=== PATIENT | female | born 1995 | race Caucasian/White ===

== ENCOUNTER 2024-04-06 09:04 | Outpatient (CLI) | payer OTHER, SELFPAY | END 2024-04-06 09:05 | disposition home or self-care (01) | LOC: US 09:05 | PROVIDERS: Visit Provider Registered Nurse | DX: Z34.93 Encounter for supervision of normal pregnancy, unspecified, third trimester (principal); O36.63X0 Maternal care for excessive fetal growth, third trimester, not applicable or unspecified; Z3A.35 35 weeks gestation of pregnancy | CPT/HCPCS: 76815 ==

== ENCOUNTER 2024-04-20 09:45 | Outpatient (CLI) | payer OTHER, SELFPAY | END 2024-04-20 09:46 | disposition home or self-care (01) | LOC: NFLDREF 04-22 04:12 | PROVIDERS: Visit Provider Obstetrics & Gynecology | DX: Z34.03 Encounter for supervision of normal first pregnancy, third trimester (principal) | CPT/HCPCS: 87081; 87653 ==

== ENCOUNTER 2024-05-02 08:14 | Outpatient (CLI) | payer OTHER, SELFPAY ==
[2024-05-02] VITALS (8 sets, daily range): BP systolic 128; BP diastolic 82; PULSE 83–93; RESP 16; TEMP 36.9; O2SAT 97–98
[2024-05-02] MEDS: TERBUTALINE 1 MG/ML INJ 0.25 MG SUBCUT (09:54)
--- NOTE | 2024-05-02 11:46 | W.PM.GYNPROC ---
Procedure Note Time Seen by Provider: 09:30 Date of procedure: 05/02/[address] [facility] bill your pro fee for this procedure?: Yes Procedure Description: I discussed with patient that 3-4% of pregnancies are breech at term.? If there is a concern in for malpresentation, we assessed with ultrasound at 36 weeks.? If the fetus continues to be breech at 36 weeks, she has the option of attempting an external cephalic version at 37 weeks.? We discussed the rationale for doing the procedure at 37 weeks (technically feasible, fetus is term should delivery be indicated, and lower risk of reversion). Contraindication to external cephalic version is anything that is a contraindication to vaginal delivery such as a placenta previa, multiple previous CD etc. Patient doesn?t have any contraindications. The benefit of an external cephalic version is fewer delivery.? There is a lower odd of endometritis, sepsis, hospital stay greater than 7 days.? It is important to know that there is no difference for low APGARs, low umbilical vein pH, and when comparing external cephalic version with subsequent vaginal delivery to planned delivery at term. The risks of external cephalic version: heart rate changes (most common in stabilizes when procedure is discontinued). ?Overall, serious adverse effects are very low, all < 1%.? These include placental abruption, umbilical cord prolapse, rupture of membranes, stillbirth, maternal hemorrhage.? The risk of an emergency delivery is also low. We discussed factors affecting success.? The overall success rate quoted in the literature is 58%.? Factors that her favorable towards a successful external cephalic version are increased parity, transverse or oblique presentation, normal amniotic volume, normal maternal BMI, and posterior placental location. Factors more associated with failure is nulliparity, advanced dilation, weight less than 2500g, anterior placenta, and low station. She will be given terbutaline for tocolysis prior to the procedure.? We discussed that terbutaline has doubled the rate of ECV success.? With regards to anesthesia, neuraxial anesthesia is available to her should she desire. I will be performing an ultrasound prior to the ECV to confirm positioning.?Additionally, if we are to proceed with the external cephalic version we will get a reactive NST prior to proceeding.? During the procedure intermittent ultrasonography will be used to assess for status.? If there is any concern for or maternal well being the procedure will be terminated immediately. After the procedure, regardless of success or not, she and fetus will be monitored for at least 60 minute prior to discharge. Patient does not require RhoGAM as she is Rh positive. PREOPERATIVE DIAGNOSIS: 1. Intrauterine at 37 weeks gestation. 2. Gifty breech presentation. POSTOPERATIVE DIAGNOSIS: 1. Intrauterine at 37 weeks gestation. 2. Vertex presentation. PROCEDURE(S): 1. Nonstress test. 2. Limited OB ultrasound. 3. External cephalic version. SURGEON: MD Myles TREAD BOOKER: Samantha Weinberg CNM ANESTHESIA: None. COMPLICATIONS: None. FINDINGS: Nonstress test: heart rate baseline 150s beats per minute, moderate variability, 15 x 15 accelerations present, no decelerations, category 1. Limited OB ultrasound: Single, living, intrauterine gestation in a gifty breech presentation with the back along the maternal right, grossly normal amniotic fluid volume. PROCEDURE NOTE: A nonstress test was performed, which was reactive and reassuring. A limited OB ultrasound was performed at the bedside to determine position. Findings noted above. Informed consent was obtained for external cephalic version. Terbutaline 0.25 mg was administered to the patient subcutaneously. External cephalic version was attempted. Samantha Weinberg CNM applied upward pressure to the breech and Augie applied pressure to the vertex, and we attempted to gently coax the fetus in a forward roll in a counter-clockwise direction. This was attempted 2 times. This 2nd attempt was successful. heart tones were noted to be normal after all attempts. The patient tolerated the procedure well. monitoring for 1 hour after the procedure was continued to be reassuring. Anesthesia: None Condition: stable Disposition: same day discharge
--- NOTE | 2024-05-02 12:25 | PC.OBNST ---
NST Note NST Note Start: 05/02/24 08:25 Freq: ONCE Status: Active Protocol: Document 05/02/24 12:05 FJRory (Rec: 05/02/24 12:24 [email or web address] [id number]) NST Note 1 Para (# of births) 0 EDC 05/21/24 Gestational Age In Weeks & Days 37 Weeks & 2 Days Patient Presented with Complaint(s) of Other Other Complaints Scheduled External Cephalic Version Reactive Yes RN Bhavani Ponce RN Date 05/02/24 Reactive Yes NERY Lerma RN Date 05/02/24 OB NST charge Yes Complete NST Note via Write Note Yes The provider's electronic signature indicates the NST is reactive/appropriate for gestational age. *Note to provider: If an addendum is required, open the patient's chart and click on the note under the Nurse/Allied Health tab.
== END 2024-05-02 12:05 | disposition home or self-care (01) ==
LOC: OB CLI 08:16 → OB 08:19
PROVIDERS: Visit Provider Advanced Practice Midwife
DX: O32.1XX0 Maternal care for breech presentation, not applicable or unspecified (principal); Z3A.37 37 weeks gestation of pregnancy
CPT/HCPCS: 59025; 59412; 76815; G0463; J3105

== ENCOUNTER 2024-05-18 14:27 | Inpatient (IN) | payer OTHER, SELFPAY ==
[2024-05-18] VITALS (26 sets, daily range): BP systolic 120–168; BP diastolic 60–92; PULSE 85–146; RESP 16; TEMP 36.7–37.5; O2SAT 92–100; BMI 39.7
--- NOTE | 2024-05-18 16:30 | P.LDBA_ITS ---
Subjective History of Present Illness Date Seen: 05/18/24 Narrative: Patient is being admitted to Labor and Delivery for spontaneous onset of labor. She is a 28 year old at 39 4/7 weeks gestation. Her full history and physical was dictated by Dr. Bueno on 04/25/2024. Please see this for details. Paradise states that contractions began around 4:00 yesterday afternoon. They kept her up much of the night. This morning, the contractions became stronger and more regular. She describes normal movement. She is accompanied today by her and her Mental Health Program Director. Specific Issues/Plans G 1 P 0 : Jayy H&P: Dr. Bueno on 04/25/2024 *Repeat GBS at 40 week visit - last done 04/20 (would before 41 week IOL)* #Breech * ECV 05/02/2024 successful! #Anxiety. Well managed with Lexapro 10 mg #Nonimmune to rubella. MMR #History of possible hypertension. Never on medication. See above. #Size greater than dates. Growth ultrasound: 04/05/24 EFW >97%, AC >97% * Consider induction of labor at 39 weeks gestation #Low lying placenta. 1.4cm from os at 20 weeks. Ultrasound ordered for next week to recheck placental location: No longer low lying. Flu: 03/31/2024 Covid: Declines today. Considering for next visit.[] TDAP: 03/04/24 RSV:04/06/24 Labs: 10/20/2023: Blood type O positive, antibody screen negative, hemoglobin 13.7, platelets 262, rubella non immune, hepatitis-B antigen nonreactive, HIV nonreactive, chlamydia and gonorrhea both negative, urine culture with less than 10,000 multiple organisms, hepatitis-C nonreactive, varicella positive, 12/17/2022: Pap smear normal, negative HPV. 03/04/2024: Hemoglobin 11.9, 1 hour glucose 94, TP PA nonreactive Ultrasounds: 09-26-23: Viable IUP measuring 3mm 10-07-23: Single viable IUP. US EDC is 05/21/24 with gestational age 7w4d. No adnexal masses. Right ovarian hyperechoic circumscribed region noted. Follow up on survey. MAE seen. 12-29-23: Single living IUP in variable presentation. No gross abnormalities. Low lying placenta present (1.4cm from os), anterior. Recommend US at 32 weeks* Anatomy not seen: 3 vellel trachea view and profile. Rec. f/u US in 7-10days. Rt and Lt ovary normal. 01-13-24: Single living IUP in vertex presentation. DULCE normal. Previously poorly documented structures have been well-visualized and no abnormalities no eber. 02/03/2025: EFW >97%, BPD 89%, HC >97%, AC >97%, FL 11%, SDP 6.7 cm OB - Problem Based A/P Additional Plan (1) Spontaneous onset of labor: Status: Acute Delivery/Labor/Induction Plan Plan: expectant management OB Result Labs Blood Type: O (+) positive Rubella: nonimmune RPR/VDLR: nonreactive GBS Status: negative HBsAG: negative OB Exam Physical Exam Vital signs: Temp Pulse Resp BP Pulse Ox 98.1 F 85 16 134/88 100 05/18/24 14:23 05/18/24 14:23 05/18/24 14:23 05/18/24 14:23 05/18/24 14:12 Narrative: Alert, cooperative white female in no acute distress but visibly uncomfortable with contractions. Detailed Labor and Delivery Exam Patient Gravid: Yes Dilation (cm): 7 Effacement (%): 90 Cervix position: mid Consistency: soft Tachysystole: No Contraction intensity: Strong/Firm Comments: Admission cervical exam by Chente Zavala RNC. Fetus (Single) Station: -1 Amniotic Membrane Status: intact Heart Rate Baseline: 135 Monitor Accelerations: Present Monitor Decelerations: None Fci Variability: Moderate (6-25)
--- NOTE | 2024-05-18 16:55 | PM.OBPNL ---
Subjective Time Seen by Provider: 16:45 Date Seen: 05/18/24 Narrative: Called to the Center to evaluate patient. She experienced a large gush of meconium-stained fluid from the vagina at 1635 and was feeling pushy. Objective Vital Signs: Last Vital Signs Temp 98.1 F 05/18/24 14:23 Pulse 85 05/18/24 14:23 Resp 16 05/18/24 14:23 BP 134/88 05/18/24 14:23 Pulse Ox 100 05/18/24 14:12 Pelvic Exam Dilation (cm): anterior rim Effacement (%): 100 Station: +2 Contractions Monitor mode: External Contraction intensity: Strong/Firm Assessment Assessment: active labor Station: +2 Amniotic Membrane Status: SROM Status: Category l Heart Rate Baseline: 135 Halfway Variability: Moderate (6-25) Monitor Accelerations: Present Monitor Decelerations: None Plan Plan: Patient prefers to wait to start pushing rather than push while I hold back the anterior cervical rim. Anticipate vaginal delivery.
[2024-05-18] MEDS: LIDOCAINE 1 % PF 30 ML INJECTION (19:05)
[2024-05-18] MEDS: OXYTOCIN 10 UNIT/ML INJ IM ×2 (19:10)
[2024-05-18] MEDS: miSOPROStoL 800 MCG/4 TABLET PR (19:15)
[2024-05-18] MEDS: TRANEXAMIC ACID 100 MG/ML INJ 1000 MG IV (19:20)
[2024-05-18] MEDS: fentaNYL 100 MCG/2 ML inj IVP (19:23)
[2024-05-18] MEDS: LACTATED RINGERS 1000 ML 1,000 ML IV (19:30)
--- NOTE | 2024-05-18 20:03 | W.PM.VAGDE_ITS ---
OB Procedure Vag Delivery Mother Details Mother Details: The patient is a 28 year-old, 1, Para 0, admitted on 05/18/24 at 39 4/7 weeks gestation in active labor. : 1 Para: 0 Weeks Gestation: 39.4 Admission Date: 05/18/24 Additional Details Amniotic Membrane Status: intact (upon admission) Amniotic Membrane Rupture Date: 05/18/24 Amniotic Membrane Rupture Time: 16:35 (SROM) Amniotic Membrane Fluid Description: Meconium Stained Analgesia/Anesthesia Type: None Waterbirth: No Pitcoin: No Intrapartal Events: Excessive Bleeding (PPH due to uterine atony treated with pitocin 10 u IM, misoprostol 800 mcg WA and tranexamic acid 1000 mg IV, as well as bleeding from vaginal, labial and anahi-urethral lacerations.) Labor Onset: 11:00 Complete: 17:00 Pushin:00 (involuntarily) Heart: heart tones during second stage were category 2, 120s baseline with intermittent variable decels to 80s with good variability and return Delivery Details Delivery Date: 05/18/24 Delivery Time: 18:57 Route of delivery: (with 50 second body dystocia) Infant Gender: Female Viability: Alive; Heart Rate Present Position at Delivery: OA Delivery Details: Delivered via spontaneous vaginal delivery. Chest and shoulders were broad, and was gently coaxed from the canal. was placed on maternal abdomen.? Cord was clamped and cut after a 30-60 second delay. Nose and mouth were bulb suctioned.? weight pending. 1 Minute Interval Total Score: 8 5 Minute Interval Total Score: 9 Additional Details Shoulder Dystocia: No Placenta Delivery Time: 19:09 Placental Delivery Description: Spontaneous Delivery repair: Chromic (3-0) Procedure Done: Global Blood Loss: 967 Laceration: Vaginal - 2nd Degree (with right labial extension, also second degree perineal and left 1st degree periurethral. Repair required RN assist for suction and retraction. Local anesthesia and IV fentanyl 100 mcg for a nalgesia.) Episiotomy Description: None Blood Loss Measurement Type: QBL Bakri Used: No Sponge/Need Count Correct: Yes Cord Vessel Description: 3 Vessels Event Summary Status: Mother and infant were stable after delivery. Disposition: floor
[2024-05-18 20:10] LABS: Hematocrit 35.6 % (33.0-51.0); Hemoglobin* 12.1 gm/dL (12.0-16.0); Immature Granulocytes Pct Auto 0.2 %; Lymphocytes Percent Auto 3.3 % (20-44); Mean Corpuscular HGB Conc 34 gm/dL (32-36); Mean Corpuscular Hemoglobin 32 pg (26-34); Mean Corpuscular Volume 95 fL (80-100); Monocytes Percent Auto 4.5 % (0.0-11.0); Platelet Count* 248 K/uL (140-440); RDW Coefficient of Variation % 13.6 % (11.5-15.5); Red Blood Count 3.74 m/uL (4.00-5.20); White Blood Count* 20.67 K/uL (4.50-11.00)
[2024-05-18 20:16] LABS: Slide Review Reflex No
[2024-05-18 21:19] LABS: Fibrinogen* 444 mg/dL (200-450); INR 0.96 (0.91-1.10); Partial Thromboplastin Time* 25 Seconds (23-33); Prothrombin Time 13.6 Seconds
[2024-05-18] MEDS: IBUPROFEN 600 MG TABLET PO (22:12)
[2024-05-19 02:00] VITALS: BP 118/74; PULSE 84; RESP 16; TEMP 36.7; O2SAT 97
[2024-05-19] MEDS: ACETAMINOPHEN 500 MG TABLET 1000 MG PO ×2 (02:36→11:10)
[2024-05-19 05:18] LABS: Basophils Percent Auto 0.1 % (0.0-3.0); Hematocrit 28.6 % (33.0-51.0); Hemoglobin* 9.8 gm/dL (12.0-16.0); Immature Granulocytes Pct Auto 0.2 %; Mean Corpuscular HGB Conc 34 gm/dL (32-36); Mean Corpuscular Hemoglobin 33 pg (26-34); Mean Corpuscular Volume 95 fL (80-100); Monocytes Percent Auto 7.9 % (0.0-11.0); Neutrophils Percent Auto 81.8 % (42.0-72.0); Platelet Count* 205 K/uL (140-440); RDW Coefficient of Variation % 13.8 % (11.5-15.5); Red Blood Count 3.01 m/uL (4.00-5.20); White Blood Count* 14.71 K/uL (4.50-11.00)
[2024-05-19 05:21] LABS: Slide Review Reflex No
[2024-05-19 05:34] LABS: INR 0.98 (0.91-1.10); Prothrombin Time 13.8 Seconds
[2024-05-19 05:35] LABS: Fibrinogen* 393 mg/dL (200-450); Partial Thromboplastin Time* 25 Seconds (23-33)
[2024-05-19 08:40] VITALS: BP 139/90; PULSE 94; RESP 16; TEMP 37; O2SAT 98
[2024-05-19] MEDS: DOCUSATE SODIUM 100 MG CAPSULE PO (08:43)
[2024-05-19] MEDS: IBUPROFEN 600 MG TABLET PO ×3 (08:44→21:26)
--- NOTE | 2024-05-19 08:47 | PM.OBPNVD1 ---
OB - PN:Subj Subjective Time Seen by Provider: 08:30 Date Seen: 05/19/24 Narrative: Paradise is a 28 year old who was admitted for spontaneous onset of labor and proceeded to have a vaginal with a 2nd Degree (with right labial extension, also second degree perineal and left 1st degree periurethral) that was repaired. The patient feels well.? The pain is well controlled with current medications.? She has no new complaints.? Urinary output is adequate and she is voiding without difficulty.? Has a good appetite, is tolerating a general diet, is passing flatus, and has not had a bowel movement.? Has small amount of rubra lochia.? She is ambulating well. She is and reports it is going well.? OB - PN: Obj Exam Physical Exam: Vital signs: Temp Pulse Resp BP Pulse Ox O2 Del Method 98.1 F 84 16 118/74 97 Room Air 05/19/24 02:00 05/19/24 02:00 05/19/24 02:00 05/19/24 02:00 05/19/24 02:00 05/19/24 02:00 Narrative: GENERAL APPEARANCE:? normal affect, alert, no distress MOOD:? appropriate CHEST:? clear to auscultation HEART:? regular rate and rhythm ABDOMEN:? soft, non-tender the uterine fundus is At Umbilicus, Midline and is appropriate for the stage of recovery. PERINEUM:? mild edema of the perineum, there is a Perineal Laceration,? well approximated with no abnormal erythema noted. EXTREMITIES:? normal and no edema OB - PN: Obj Data Labs Labs: Laboratory Results - last 24 hr 05/18/24 05/19/24 20:04 05:10 WBC 20.67 H 14.71 H RBC 3.74 L 3.01 L Hgb 12.1 9.8 L Hct 35.6 28.6 L MCV 95 95 MCH 32 33 MCHC 34 34 RDW Coeff of Ching 13.6 13.8 Plt Count 248 205 Neut % (Auto) 92.0 H 81.8 H Lymph % (Auto) 3.3 L 10.0 L [place] % (Auto) 4.5 7.9 Eos % (Auto) 0.0 0.0 Baso % (Auto) 0.0 0.1 Neut # (Auto) 19.00 H 12.00 H Lymph # (Auto) 0.70 L 1.50 [place] # (Auto) 0.90 1.20 H Eos # (Auto) 0.00 0.00 Baso # (Auto) 0.00 0.00 Abs Immat Gran (auto) 0.00 0.00 Imm/Tot Granulo (auto) 0.2 0.2 INR 0.96 0.98 APTT 25 25 Fibrinogen 444 393 OB - PN: A/P Delivery Assessment and Plan (1) (normal spontaneous vaginal delivery): Status: Acute (2) Second degree perineal laceration: Status: Acute Plan Comments: PP day #1 Routine care May see as desired Anticipate discharge 05/20/24
[2024-05-19 08:55] VITALS: BP 143/94
[2024-05-19 09:40] LABS: Alanine Aminotransferase* 24 U/L (4-35); Aspartate Amino Transferase* 50 U/L (12-35); Blood Urea Nitrogen* 9 mg/dL (5-24); Creatinine* 0.5 mg/dL (0.5-1.5); Est. Creatinine Clearance* 159.99; Estimated Glomerular Filt Rate 129 ml/min
[2024-05-19 11:05] VITALS: BP 135/89; PULSE 80; RESP 16; TEMP 37; O2SAT 98
[2024-05-19] MEDS: NIFEdipine 30 MG TAB.ER.24 PO (11:10)
[2024-05-19 17:00] VITALS: BP 127/82; PULSE 89; RESP 16; TEMP 36.8; O2SAT 97
[2024-05-19 21:34] VITALS: BP 119/68; PULSE 91; RESP 16; TEMP 37.1; O2SAT 96
[2024-05-19] MEDS: LANOLIN CREAM 1 APPLIC TOPICAL (23:28)
[2024-05-20] VITALS (19 sets, daily range): BP systolic 117–150; BP diastolic 74–97; PULSE 83–108; RESP 16–18; TEMP 36.4–36.9; O2SAT 96–99
[2024-05-20 05:07] LABS: Mean Corpuscular HGB Conc 33 gm/dL (32-36); Mean Corpuscular Hemoglobin 33 pg (26-34); Mean Corpuscular Volume 97 fL (80-100); Platelet Count* 212 K/uL (140-440); Red Blood Count 3.08 m/uL (4.00-5.20); White Blood Count* 10.66 K/uL (4.50-11.00)
[2024-05-20 05:08] LABS: Slide Review Reflex No
[2024-05-20 05:23] LABS: Alanine Aminotransferase* 33 U/L (4-35); Aspartate Amino Transferase* 71 U/L (12-35); Blood Urea Nitrogen* 11 mg/dL (5-24); Creatinine* 0.5 mg/dL (0.5-1.5); Est. Creatinine Clearance* 159.99; Estimated Glomerular Filt Rate 129 ml/min
--- NOTE | 2024-05-20 07:29 | P.OBPN_ITS ---
OB - PN:Subj Subjective Time Seen by Provider: 07:29 Date Seen: 05/20/24 Narrative: S: Paradise is a 28yo PPD#2 after a , diagnosed with preeclampsia without severe features in the early period. Labs this morning were significant for an AST = 71 so now meets criteria for preeclampsia with severe features. I discussed the this diagnosis with the patient and recommended magnesium sulfate for seizure prophylaxis. She denies headaches visual di sturbance. States that she is swollen in her feet and ankles and has had an upper quadrant pain/discomfort for most of the 3rd trimester of her without abnormalities in her blood pressure or liver function tests until . She became tearful when I talked with her about magnesium to prevent seizures. She understands that she will be in the hospital for 1-2 more days. Blood pressures been under good control with nifedipine ER 30 mg daily. OB - PN: Obj Exam Physical Exam: Vital signs: Temp Pulse Resp BP Pulse Ox O2 Del Method 97.6 F 89 16 117/79 96 Room Air 05/20/24 05:14 05/20/24 05:14 05/20/24 05:14 05/20/24 05:14 05/20/24 05:14 05/20/24 05:14 Narrative: General: Pleasant, , well groomed woman in no acute distress. Vital signs: Included in her electronic medical record. Heart: Regular rate and rhythm without gallop, rub or murmur. Chest: Clear to auscultation bilaterally. Abdomen: Soft, nontender, nondistended with normal bowel sounds. No right upper quadrant tenderness to palpation. Fundus is firm at the umbilicus in the midline. Lochia: Moderate rubra Extremities: 2+ bilateral lower extremity edema to the mid landeros. Patellar DTRs are 3+/2 without clonus. OB - PN: Obj Data Labs Labs: Laboratory Results - last 24 hr 05/19/24 05/20/24 05:10 05:03 WBC 10.66 RBC 3.08 L Hgb 10.0 L Hct 30.0 L MCV 97 MCH 33 MCHC 33 Plt Count 212 BUN 9 11 Creatinine 0.5 0.5 Estimated Creat Clear 159.99 159.99 Estimated GFR 129 129 AST 50 H 71 H ALT 24 33 OB - PN: A/P Delivery Assessment and Plan (1) (normal spontaneous vaginal delivery): Status: Acute (2) Second degree perineal laceration: Status: Acute (3) Severe preeclampsia: Problem details: By AST = 71 Status: Acute Assessment and Plan: 1. Start magnesium sulfate for seizure prophylaxis. 2. Nifedipine ER 30 mg daily. 3. Preeclampsia labs every 6 hours well on magnesium. 4. Likely discharge home 05/21-05/22/24
[2024-05-20] MEDS: MAGNESIUM IV 4 GM/100 ML PIGGYBACK IVPB (07:42)
[2024-05-20] MEDS: LACTATED RINGERS 1000 ML 1,000 ML 75 ML IV ×2 (07:49→15:53)
[2024-05-20] MEDS: MAGNESIUM Infusion 40 GM/1,000 ML IV.SOLN IVPB (08:13)
[2024-05-20] MEDS: DOCUSATE SODIUM 100 MG CAPSULE PO (09:03)
[2024-05-20] MEDS: NIFEdipine 30 MG TAB.ER.24 PO (09:03)
[2024-05-20] MEDS: ACETAMINOPHEN 500 MG TABLET 1000 MG PO ×2 (10:26→20:08)
[2024-05-20] MEDS: ESCITALOPRAM 10 MG TABLET PO (10:27)
[2024-05-20 13:19] LABS: Hemoglobin* 10.4 gm/dL (12.0-16.0); Mean Corpuscular HGB Conc 34 gm/dL (32-36); Mean Corpuscular Hemoglobin 33 pg (26-34); Mean Corpuscular Volume 97 fL (80-100); Platelet Count* 224 K/uL (140-440); Red Blood Count 3.19 m/uL (4.00-5.20)
[2024-05-20] MEDS: IBUPROFEN 600 MG TABLET PO ×2 (13:19→23:09)
[2024-05-20 13:21] LABS: Slide Review Reflex No
[2024-05-20 13:35] LABS: Alanine Aminotransferase* 34 U/L (4-35); Aspartate Amino Transferase* 72 U/L (12-35); Blood Urea Nitrogen* 8 mg/dL (5-24); Creatinine* 0.6 mg/dL (0.5-1.5); Est. Creatinine Clearance* 133.32; Estimated Glomerular Filt Rate 124 ml/min
[2024-05-20 13:36] LABS: Magnesium* 3.9 mg/dL (1.5-2.6)
[2024-05-20 19:46] LABS: Hemoglobin* 10.3 gm/dL (12.0-16.0); Mean Corpuscular HGB Conc 33 gm/dL (32-36); Mean Corpuscular Hemoglobin 33 pg (26-34); Mean Corpuscular Volume 98 fL (80-100); Platelet Count* 245 K/uL (140-440); Red Blood Count 3.17 m/uL (4.00-5.20); White Blood Count* 10.48 K/uL (4.50-11.00)
[2024-05-20 19:48] LABS: Slide Review Reflex No
[2024-05-20 20:07] LABS: Alanine Aminotransferase* 37 U/L (4-35); Aspartate Amino Transferase* 79 U/L (12-35); Blood Urea Nitrogen* 10 mg/dL (5-24); Creatinine* 0.6 mg/dL (0.5-1.5); Est. Creatinine Clearance* 133.32; Estimated Glomerular Filt Rate 124 ml/min
[2024-05-20 20:12] LABS: Magnesium* 4.3 mg/dL (1.5-2.6)
[2024-05-21] VITALS (8 sets, daily range): BP systolic 118–137; BP diastolic 76–91; PULSE 85–101; RESP 16–17; TEMP 36.7–37.2; O2SAT 95–98
[2024-05-21 01:29] LABS: Hematocrit 28.3 % (33.0-51.0); Hemoglobin* 9.4 gm/dL (12.0-16.0); Mean Corpuscular HGB Conc 33 gm/dL (32-36); Mean Corpuscular Hemoglobin 32 pg (26-34); Mean Corpuscular Volume 98 fL (80-100); Platelet Count* 223 K/uL (140-440); White Blood Count* 9.53 K/uL (4.50-11.00)
[2024-05-21 01:38] LABS: Slide Review Reflex No
[2024-05-21 01:44] LABS: Alanine Aminotransferase* 36 U/L (4-35); Aspartate Amino Transferase* 75 U/L (12-35); Blood Urea Nitrogen* 12 mg/dL (5-24); Creatinine* 0.6 mg/dL (0.5-1.5); Est. Creatinine Clearance* 133.32; Estimated Glomerular Filt Rate 124 ml/min
[2024-05-21 01:50] LABS: Magnesium* 4.4 mg/dL (1.5-2.6)
[2024-05-21] MEDS: ACETAMINOPHEN 500 MG TABLET 1000 MG PO (03:07)
[2024-05-21] MEDS: MAGNESIUM Infusion 40 GM/1,000 ML IV.SOLN IVPB (05:14)
[2024-05-21] MEDS: IBUPROFEN 600 MG TABLET PO ×3 (05:15→22:51)
[2024-05-21 08:41] LABS: Hematocrit 29.7 % (33.0-51.0); Hemoglobin* 9.9 gm/dL (12.0-16.0); Mean Corpuscular HGB Conc 33 gm/dL (32-36); Mean Corpuscular Hemoglobin 33 pg (26-34); Mean Corpuscular Volume 98 fL (80-100); Platelet Count* 224 K/uL (140-440); Red Blood Count 3.04 m/uL (4.00-5.20); White Blood Count* 8.62 K/uL (4.50-11.00)
[2024-05-21 08:56] LABS: Slide Review Reflex No
[2024-05-21 08:57] LABS: Alanine Aminotransferase* 38 U/L (4-35); Aspartate Amino Transferase* 77 U/L (12-35); Blood Urea Nitrogen* 9 mg/dL (5-24); Creatinine* 0.5 mg/dL (0.5-1.5); Est. Creatinine Clearance* 159.99; Estimated Glomerular Filt Rate 129 ml/min
[2024-05-21 09:01] LABS: Magnesium* 4.3 mg/dL (1.5-2.6)
[2024-05-21] MEDS: DOCUSATE SODIUM 100 MG CAPSULE PO (09:18)
[2024-05-21] MEDS: FERROUS SULFATE 325 MG TABLET PO (09:18)
[2024-05-21] MEDS: NIFEdipine 30 MG TAB.ER.24 PO (09:18)
[2024-05-21] MEDS: ESCITALOPRAM 10 MG TABLET PO (09:44)
--- NOTE | 2024-05-21 10:52 | PM.OBPNVD1 ---
OB - PN:Subj Subjective Time Seen by Provider: 10:00 Date Seen: 05/21/24 Narrative: Overnight patient had no complaints. Feeling much better now that she's off magnesium sulfate. Her pain is well controlled on oral pain medications. She is tolerating a regular diet. She has passed flatus. She is ambulating without difficulty. Lochia is scant. She is urinating without archibald. Reports leaking of urine with coughing. Reassured patient that this is common. Should improved with decrease in swelling and as she heals. Discussed PT if symptoms don't improve after her visit at 6 week . Patient denies chest pain, SOB, n/v, headache, RUQ pain, vision changes, dizziness. OB - PN: Obj Exam Physical Exam: Vital signs: Temp Pulse Resp BP Pulse Ox O2 Del Method 98.0 F 87 16 137/81 96 Room Air 05/21/24 07:52 05/21/24 07:52 05/21/24 07:52 05/21/24 07:52 05/21/24 07:52 05/21/24 07:52 Narrative: Physical exam: General: No acute distress Psych: Alert and oriented x4, full affect HEENT: Normocephalic, atraumatic Heart: Regular rate and rhythm, no murmur rub or gallop Lungs: Clear to auscultation bilaterally Abdomen: Soft, no tenderness, rebound, or guarding Skin: No lesions or rashes Lower extremities: No edema or erythema Pelvic exam: Scant lochia OB - PN: Obj Data Labs Labs: Laboratory Results - last 24 hr 05/20/24 05/20/24 05/21/24 13:08 19:30 01:24 WBC 10.30 10.48 9.53 RBC 3.19 L 3.17 L 2.90 L Hgb 10.4 L 10.3 L 9.4 L Hct 31.0 L 31.0 L 28.3 L MCV 97 98 98 MCH 33 33 32 MCHC 34 33 33 Plt Count 224 245 223 BUN 8 10 12 Creatinine 0.6 0.6 0.6 Estimated Creat Clear 133.32 133.32 133.32 Estimated GFR 124 124 124 Magnesium 3.9 H 4.3 H* 4.4 H* AST 72 H 79 H 75 H ALT 34 37 H 36 H 05/21/24 08:29 WBC 8.62 RBC 3.04 L Hgb 9.9 L Hct 29.7 L MCV 98 MCH 33 MCHC 33 Plt Count 224 BUN 9 Creatinine 0.5 Estimated Creat Clear 159.99 Estimated GFR 129 Magnesium 4.3 H* AST 77 H ALT 38 H OB - PN: A/P Delivery Assessment and Plan (1) (normal spontaneous vaginal delivery): Status: Acute (2) Second degree perineal laceration: Status: Acute Assessment and Plan: - Ice pack, anahi-bottle and Dermaplant PRN (3) Severe preeclampsia: Problem details: By AST = 71 Status: Acute Assessment and Plan: Pre-Eclampsia with severe features - Based on mild ranging BP and AST of 71 - BPs overnight: 120-130s/70-80s. Only one value of 150/97. - Symptoms: none - Magnesium: s/p 24 hours of magnesium sulfate - IV antihypertensives: Nifedipine ER 30 mg QD - Pre-eclampsia labs on 05/21/24: Hgb 9.9 Plt 224 Cr 0.5 ALT 38 AST 77 - UOP: 1.28 mg/kg/hr
[2024-05-21] MEDS: BENZOCAINE/MENTHOL SPRAY 85 GM AEROSOL 1 APPLIC TOPICAL (13:23)
[2024-05-22 00:47] VITALS: BP 121/79; PULSE 76; RESP 16; TEMP 36.8; O2SAT 97
[2024-05-22 04:53] VITALS: BP 128/83; PULSE 82; RESP 16; TEMP 36.8; O2SAT 98
[2024-05-22 04:53] LABS: Hematocrit 29.8 % (33.0-51.0); Hemoglobin* 9.9 gm/dL (12.0-16.0); Mean Corpuscular HGB Conc 33 gm/dL (32-36); Mean Corpuscular Hemoglobin 33 pg (26-34); Mean Corpuscular Volume 98 fL (80-100); Platelet Count* 230 K/uL (140-440); Red Blood Count 3.03 m/uL (4.00-5.20); White Blood Count* 7.51 K/uL (4.50-11.00)
[2024-05-22 05:16] LABS: Slide Review Reflex No
[2024-05-22 05:22] LABS: Alanine Aminotransferase* 53 U/L (4-35); Aspartate Amino Transferase* 96 U/L (12-35); Blood Urea Nitrogen* 11 mg/dL (5-24); Creatinine* 0.5 mg/dL (0.5-1.5); Est. Creatinine Clearance* 159.99; Estimated Glomerular Filt Rate 129 ml/min
[2024-05-22 07:46] VITALS: BP 126/80; PULSE 74; RESP 16; TEMP 36.9; O2SAT 97
[2024-05-22] MEDS: DOCUSATE SODIUM 100 MG CAPSULE PO (10:00)
[2024-05-22] MEDS: IBUPROFEN 600 MG TABLET PO (10:01)
[2024-05-22] MEDS: NIFEdipine 30 MG TAB.ER.24 PO (10:02)
[2024-05-22] MEDS: ESCITALOPRAM 10 MG TABLET PO (10:43)
--- NOTE | 2024-05-22 11:46 | P.DS_ITS ---
DS: Providers Provider Time Seen by Provider: 09:00 Date Seen: 05/22/24 Date of admission: 05/18/24 14:27 Primary care physician: Not a Local Provider Admitting Clinician: Sandra Jacques MD Attending Physician on discharge: Sandra Jacques MD Date of Discharge: 05/22/24 DS: Diagnosis Discharge Diagnosis (1) Anemia due to acute blood loss: Status: Acute (2) Severe preeclampsia: Status: Acute Problem details: By AST = 71 (3) Second degree perineal laceration: Status: Acute (4) (normal spontaneous vaginal delivery): Status: Acute (5) macrosomia affecting management of mother, antepartum: Status: Acute (6) Rubella non-immune status, antepartum: Status: Acute (7) Anxiety: Status: Acute Exam Narrative: Exam Narrative: Physical exam: General: No acute distress Psych: Alert and oriented x4, full affect HEENT: Normocephalic, atraumatic Heart: Regular rate and rhythm, no murmur rub or gallop Lungs: Clear to auscultation bilaterally Abdomen: Soft, no tenderness, rebound, or guarding Skin: No lesions or rashes Lower extremities: No edema or erythema Pelvic exam: Scant lochia Const: Vital Signs, click to edit/add: Vital Signs - 24 hr 05/21/24 13:20 05/21/24 18:52 05/21/24 20:55 Temperature 98.9 F 98.6 F Pulse Rate [Pulse Oximeter] 91 101 H 89 Respiratory Rate 16 17 16 Blood Pressure [Ri ght Arm] 127/81 132/82 135/91 H Pulse Oximetry 96 97 98 Oxygen Delivery Me thod Room Air Room Air 05/21/24 22:44 05/22/24 00:47 05/22/24 04:53 Temperature 98.2 F 98.3 F Pulse Rate [Pulse Oximeter] 87 76 82 Respiratory Rate 16 16 Blood Pressure [Ri ght Arm] 119/79 121/79 128/83 Pulse Oximetry 97 97 98 Oxygen Delivery Me thod Room Air Room Air Room Air 05/22/24 07:46 Temperature 98.5 F Pulse Rate [Pulse Oximeter] 74 Respiratory Rate 16 Blood Pressure [Ri ght Arm] 126/80 Pulse Oximetry 97 Oxygen Delivery Me thod Room Air OB - DS: Summary Hospital Course Hospital Course: The patient is a 28 year old at 39.4 weeks gestation that was admitted to the Center on 05/18/24 for spontaneous onset of labor. She had a vaginal delivery complicated by excessive bleeding due to uterine atony. She delivered a viable female infant who was 4390 g. She is breast feeding. the patient was diagnosed with preeclampsia with severe features based on mild range in blood pressures and AST of 71. She received 24 hours of magnesium sulfate for seizure prophylaxis. Her blood pressures are well controlled with nifedipine ER 30 mg daily. Her LFT are slightly uptrending. Discussed with patient it could take up to 6 weeks for transaminitis are resolved. If transaminitis is persistent after 6 weeks , can consider referral to [facility]. Denies any persistent headache, vision changes, SOB, right upper quadrant/epigastric pain, or rapidly expanding edema. [place] Infant Gender: Female Time Spent with Patient Time attestation: Total time spent providing and/or coordinating discharge services: Discharge Plan Discharge Disposition: Home, Self-Care Date of Admission: 05/18/24 14:27 Attending Provider on Discharge: Massiel Bueno Primary Care Provider: Provider,Not a Local Condition: Stable Anticipated Discharge Date/Time: 05/22/24 11:40 Discharge Medications: New Dermoplast (with menthol) 20-0.5 % Aerosol 1 spray topical QID PRNQty: 85 0RF acetaminophen 500 mg Tablet 1,000 mg PO Q6H PRN30 Days Qty: 60 0RF ferrous sulfate 325 mg (65 mg iron) Tablet 325 mg PO Q48H 30 Days Qty: 15 0RF docusate sodium 100 mg Capsule 100 mg PO DAILY 30 Days Qty: 30 0RF ibuprofen 600 mg Tablet 600 mg PO Q6H PRN30 Days Qty: 60 0RF Lanolin (HPA) 100 % Cream 1 applic topical Q1H PRNQty: 21 0RF nifedipine 30 mg Tablet Extended Release 30 mg PO DAILY 30 Days Qty: 30 0RF Continued omeprazole 20 mg capsule,delayed release(DR/EC) 20 mg PO DAILY escitalopram oxalate 10 mg tablet 10 mg PO DAILY DHA 200 mg capsule 200 mg PO DAILY Discharge Orders: Discharge Order (Routine); Ordered 05/22/24 Ordered By: Massiel Bueno Patient Education: OB Vaginal/Breast Feeding Additional Instructions: Discharge instructions were reviewed with the patient including signs and symptoms of infection and home going medications. Lifting Restrictions: 20 pounds for [address] while taking narcotic pain medication: Approximately 1 week. Off Work or School for 6 weeks. Nothing vaginally for 6 weeks Symptoms to report to doctor: -Bleeding that saturates more than one pad per hour ?-Passing clots larger than the size of a golf ball ?-Pain not relieved by prescribed medication ?-Fever above 100.4 degrees Fahrenheit ?-A foul vaginal odor ?-Difficulty in emotions, mood and functions ?-Thoughts of hurting yourself and/or ?-Painful, reddened area in your breast ?-Any drainage, redness or tenderness in your IV/epidural site ?-Severe headache that doesn't improve after taking medications ?-Changes in vision, including temporary loss of vision, blurred vision, and/or light sensitivity ?-Upper abdominal pain (usually under ribs on the right side) ?-Decrease in urination or painful, frequent urinating ?-Chest pain ?-Shortness of breath ?-Tenderness or pain with redness and/swelling in the calf(s) of your leg Follow Up [facility] provider: - 3-5 days after discharge for blood pressure check given diagnosis of preeclampsia with severe features - 2 week visit: Answer concerns for infant care, screen for anxiety/depression. - 6 week visit: Annual exam. consultation services are available to all mothers and babies for the first year after delivery.? To make an appointment, please call [phone]. Follow Up Appointments: Provider,Not a Local [Primary Care Provider] - Forms: [employer] Info Instructions
[2024-05-22] MEDS: MEASLES,MUMPS,RUBELLA VACC/PF 1 DOSE INJ 1 EACH SUBCUT (12:53)
[2024-05-22] MEDS: ACETAMINOPHEN 500 MG TABLET 1000 MG PO (15:14)
== END 2024-05-22 16:02 | disposition home or self-care (01) | DRG 806 ==
LOC: OB OUT 14:28 → OB 14:28
PROVIDERS: Obstetrics & Gynecology; Admitting Provider Obstetrics & Gynecology; Visit Provider Obstetrics & Gynecology
DX: O70.1 Second degree perineal laceration during delivery (principal); D62 Acute posthemorrhagic anemia; Z37.0 Single live birth; O71.82 Other specified trauma to perineum and vulva; O99.344 Other mental disorders complicating childbirth; F41.9 Anxiety disorder, unspecified; Z3A.39 39 weeks gestation of pregnancy; O14.15 Severe pre-eclampsia, complicating the puerperium; O62.2 Other uterine inertia; O77.0 Labor and delivery complicated by meconium in amniotic fluid
CPT/HCPCS: 36415; 82565; 83735; 84450; 84460; 84520; 85025; 85027; 85384; 85610; 85730; 86592; A9270; J2003; J2590; J3010; J3475; J7120

== ENCOUNTER 2024-05-26 10:50 | Outpatient (CLI) | payer OTHER, SELFPAY | END 2024-05-26 10:51 | disposition home or self-care (01) | PROVIDERS: Visit Provider Physician Assistant | DX: O14.15 Severe pre-eclampsia, complicating the puerperium (principal) | CPT/HCPCS: 84450; 84460 ==

== ENCOUNTER 2024-06-27 13:35 | Outpatient (CLI) | payer OTHER, SELFPAY | END 2024-06-27 13:36 | disposition home or self-care (01) | PROVIDERS: Visit Provider Physician Assistant | DX: Z39.2 Encounter for routine postpartum follow-up (principal); D62 Acute posthemorrhagic anemia | CPT/HCPCS: 84450; 84460 ==

== ENCOUNTER 2024-07-05 07:10 | Outpatient (CLI) | payer OTHER, SELFPAY ==
--- NOTE | 2024-07-05 07:15 | CRLHL7_ITS ---
For Patients: As a result of the Century Cures Act, medical imaging exams and procedure reports are released immediately into your electronic medical record. You may view this report before your referring provider. If you have questions, please contact your health care provider. INDICATION: elevated liver enzymes COMPARISON: none TECHNIQUE: Real time schneider scale imaging and color Doppler analysis was performed of the right upper quadrant. FINDINGS: Liver echotexture is mildly increased. Liver measures 19.0 cm. No intrahepatic mass. There is a normal appearance of the hepatic IVC and proximal abdominal aorta. There is no evidence of ascites. The gallbladder is of normal size and there is no evidence of intraluminal stones or sludge. The gallbladder wall measures 2 mm in thickness. The common bile duct is of normal size and measures 3 mm in diameter at the level of the raul hepatis. The pancreas appears normal. Echogenic focus within the right kidney without distal acoustic shadowing measures 6 x 5 x 10 millimeters. The right kidney measures 13.6 cm in length. IMPRESSION: Hepatomegaly with mild hepatic steatosis. Normal gallbladder. 1 cm right renal angiomyolipoma. Dictated by Nicholas Bro MD @ 07/05/2024 9:28:19 AM (Electronically Signed)
== END 2024-07-05 07:11 | disposition home or self-care (01) ==
LOC: US 07:11
PROVIDERS: Visit Provider Physician Assistant
DX: R74.8 Abnormal levels of other serum enzymes (principal); R16.0 Hepatomegaly, not elsewhere classified; K76.0 Fatty (change of) liver, not elsewhere classified; D17.71 Benign lipomatous neoplasm of kidney
CPT/HCPCS: 76705